=== PATIENT | male | born 1970 | race Caucasian/White ===

== ENCOUNTER 2017-01-16 10:13 | Emergency (ER) | payer OTHER ==
[2017-01-16] MEDS ORDERED: Aspirin 81 MG Tab.Chew PO ONE (10:30)
--- NOTE | 2017-01-16 11:02 | EDM.PDOC ---
ED HPI GENERAL MEDICAL PROBLEM - General Chief Complaint: Chest Pain Stated Complaint: [facility] Time Seen by Provider: 01/16/17 10:15 Source of Information: Reports: Patient, EMS Notes Reviewed History Limitations: Reports: No Limitations - History of Present Illness INITIAL COMMENTS - FREE TEXT/NARRATIVE: pt woke up this ama nd he shortly developed chest tightness and it hurt to take a deep breath in the middle of his chest Onset: Today, Sudden, Other (pt became very sob. ) Duration: Hour(s): Location: Reports: Chest, Other (He did get panicy when couldn,t catch his breath. ) Associated Symptoms: Reports: Shortness of Breath - Related Data Allergies Allergy/AdvReac Type Severity Reaction Status Date / Time No Known Allergies Allergy Verified 01/16/17 10:23 Past Medical History Cardiovascular History: Reports: Hypertension Social & Family History - Tobacco Use Smoking Status *Q: Unknown Ever Smoked ED ROS GENERAL - Review of Systems Review Of Systems: See Below Constitutional: Reports: No Symptoms HEENT: Reports: No Symptoms Respiratory: Reports: Shortness of Breath, Cough Cardiovascular: Reports: No Symptoms Endocrine: Reports: No Symptoms GI/Abdominal: Reports: No Symptoms : Reports: No Symptoms Musculoskeletal: Reports: No Symptoms Skin: Reports: No Symptoms ED EXAM, GENERAL - Physical Exam Exam: See Below Free Text/Narrative:: pt arrived after having an episode of chest pain and marked sob. Exam Limited By: No Limitations General Appearance: Alert, Anxious Ears: Normal TMs Nose: Normal Inspection Throat/Mouth: Normal Inspection Head: Atraumatic Neck: Normal Inspection Respiratory/Chest: Other (pt was not having distress after arival. ) Cardiovascular: Regular Rate, Rhythm GI/Abdominal: Soft, Non-Tender (Male) Exam: Deferred Rectal (Males) Exam: Deferred Extremities: Normal Inspection Neurological: Alert, Oriented, Normal Cognition Psychiatric: Anxious Course - Vital Signs Last Recorded V/S: Last Vital Signs Temp 35.7 C 01/16/17 15:20 Pulse 106 H 01/16/17 15:20 Resp 16 01/16/17 15:20 BP 165/115 H 01/16/17 15:20 Pulse Ox 97 01/16/17 15:20 - Orders/Labs/Meds Orders: Active Orders 24 hr Category Date Time Status EKG Documentation Completion [RC] ASDIRECTED Care 01/16/17 10:29 Active EKG 12 Lead [EK] Routine Ther 01/16/17 10:29 Ordered Labs: Laboratory Tests 01/16/17 01/16/17 01/16/17 Range/Units 10:16 10:16 10:26 WBC 9.9 (4.5-11.0) K/uL RBC 4.42 (4.30-5.90) M/uL Hgb 17.0 H (12.0-15.0) g/dL Hct 46.7 (40.0-54.0) % MCV 106 H (80-98) fL MCH 39 H (27-31) pg MCHC 36 (32-36) % Plt Count 198 (150-400) K/uL Neut % (Auto) 78 H (36-66) % Lymph % (Auto) 13 L (24-44) % Mccone % (Auto) 8 H (2-6) % Eos % (Auto) 1 L (2-4) % Baso % (Auto) 1 (0-1) % Puncture Site ABG pH (7.350-7.450) ABG pCO2 (35.0-42.0) mmHg ABG pO2 (75.0-100.0) mmHg ABG HCO3 (22.0-26.0) mmol/L ABG Total CO2 (23.0-27.0) mmol/L ABG O2 Saturation (95.0-98.0) % ABG O2 Content (15.0-23.0) %vol ABG Base Excess mm/L ABG Hemoglobin (13.5-18.0) g/dL ABG Oxyhemoglobin % ABG Carboxyhemoglobin (0.0-1.6) % ABG Methemoglobin % Tadeo Test O2 Delivery Device Sodium 142 (140-148) mmol/L Potassium 3.7 (3.6-5.2) mmol/L Chloride 108 (100-108) mmol/L Carbon Dioxide 24 (21-32) mmol/L Anion Gap 13.7 (5.0-14.0) mmol/L BUN 11 (7-18) mg/dL Creatinine 0.9 (0.8-1.3) mg/dL Est Cr Clr Drug Dosing 86.79 mL/min Estimated GFR (MDRD) > 60 (>60) Glucose 128 H (74-106) mg/dL Calcium 8.6 (8.5-10.1) mg/dL Total Bilirubin 1.3 H (0.2-1.0) mg/dL AST 28 (15-37) U/L ALT 36 (12-78) U/L Alkaline Phosphatase 68 (46-116) U/L Creatine Kinase 96 (39-308) U/L Troponin I 0.022 (0.000-0.056) ng/mL [id number] Pept (5-125) pg/mL Total Protein 7.2 (6.4-8.2) g/dL Albumin 3.6 (3.4-5.0) g/dL Globulin 3.6 H (2.3-3.5) g/dL Albumin/Globulin Ratio 1.0 L (1.2-2.2) Urine Color Urine Appearance Urine pH (4.5-8.0) Ur Specific [place] (1.008-1.030) Urine Protein (NEGATIVE) mg/dL Urine Glucose (UA) (NEGATIVE) mg/dL Urine Ketones (NEGATIVE) mg/dL Urine Occult Blood (NEGATIVE) Urine Nitrite (NEGAITVE) Urine Bilirubin (NEGATIVE) Urine Urobilinogen (NORMAL) mg/dL Ur Leukocyte Esterase (NEGATIVE) Urine RBC (0-5) Urine WBC (0-5) Ur Epithelial Cells Amorphous Sediment Urine Bacteria Urine Mucus Urine Other Urine Opiates Screen (NEGATIVE) Ur Oxycodone Screen (NEGATIVE) Urine Methadone Screen (NEGATIVE) Ur Propoxyphene Screen (NEGATIVE) Ur Barbiturates Screen (NEGATIVE) Ur Tricyclics Screen (NEGATIVE) Ur Phencyclidine Scrn (NEGATIVE) Ur Amphetamine Screen (NEGATIVE) U Methamphetamines Scrn (NEGATIVE) Urine MDMA Screen (NEGATIVE) U Benzodiazepines Scrn (NEGATIVE) U Cocaine Metab Screen (NEGATIVE) U Marijuana (THC) Screen (NEGATIVE) 01/16/17 01/16/17 01/16/17 Range/Units 10:31 11:10 11:10 WBC (4.5-11.0) K/uL RBC (4.30-5.90) M/uL Hgb (12.0-15.0) g/dL Hct (40.0-54.0) % MCV (80-98) fL MCH (27-31) pg MCHC (32-36) % Plt Count (150-400) K/uL Neut % (Auto) (36-66) % Lymph % (Auto) (24-44) % Mccone % (Auto) (2-6) % Eos % (Auto) (2-4) % Baso % (Auto) (0-1) % Puncture Site Lt radial ABG pH 7.469 H (7.350-7.450) ABG pCO2 27.6 L (35.0-42.0) mmHg ABG pO2 72.4 L (75.0-100.0) mmHg ABG HCO3 19.8 L (22.0-26.0) mmol/L ABG Total CO2 16.4 L (23.0-27.0) mmol/L ABG O2 Saturation 95.5 (95.0-98.0) % ABG O2 Content 22.1 (15.0-23.0) %vol ABG Base Excess -1.8 mm/L ABG Hemoglobin 17.0 (13.5-18.0) g/dL ABG Oxyhemoglobin 92.3 % ABG Carboxyhemoglobin 2.8 H (0.0-1.6) % ABG Methemoglobin 0.5 % Tadeo Test Passed O2 Delivery Device Room air Sodium (140-148) mmol/L Potassium (3.6-5.2) mmol/L Chloride (100-108) mmol/L Carbon Dioxide (21-32) mmol/L Anion Gap (5.0-14.0) mmol/L BUN (7-18) mg/dL Creatinine (0.8-1.3) mg/dL Est Cr Clr Drug Dosing mL/min Estimated GFR (MDRD) (>60) Glucose (74-106) mg/dL Calcium (8.5-10.1) mg/dL Total Bilirubin (0.2-1.0) mg/dL AST (15-37) U/L ALT (12-78) U/L Alkaline Phosphatase (46-116) U/L Creatine Kinase (39-308) U/L Troponin I (0.000-0.056) ng/mL [id number]-[id number] Pept (5-125) pg/mL Total Protein (6.4-8.2) g/dL Albumin (3.4-5.0) g/dL Globulin (2.3-3.5) g/dL Albumin/Globulin Ratio (1.2-2.2) Urine Color Yellow Urine Appearance Slightly cloudy Urine pH 5.0 (4.5-8.0) Ur Specific [place] 1.020 (1.008-1.030) Urine Protein Negative (NEGATIVE) mg/dL Urine Glucose (UA) Normal (NEGATIVE) mg/dL Urine Ketones Negative (NEGATIVE) mg/dL Urine Occult Blood Negative (NEGATIVE) Urine Nitrite Negative (NEGAITVE) Urine Bilirubin Small (NEGATIVE) Urine Urobilinogen Normal (NORMAL) mg/dL Ur Leukocyte Esterase Negative (NEGATIVE) Urine RBC 0-5 (0-5) Urine WBC Not seen (0-5) Ur Epithelial Cells Not seen Amorphous Sediment Few Urine Bacteria Not seen Urine Mucus Many Urine Other See note Urine Opiates Screen Negative (NEGATIVE) Ur Oxycodone Screen Negative (NEGATIVE) Urine Methadone Screen Negative (NEGATIVE) Ur Propoxyphene Screen Negative (NEGATIVE) Ur Barbiturates Screen Negative (NEGATIVE) Ur Tricyclics Screen Negative (NEGATIVE) Ur Phencyclidine Scrn Negative (NEGATIVE) Ur Amphetamine Screen Negative (NEGATIVE) U Methamphetamines Scrn Negative (NEGATIVE) Urine MDMA Screen Negative (NEGATIVE) U Benzodiazepines Scrn Negative (NEGATIVE) U Cocaine Metab Screen Negative (NEGATIVE) U Marijuana (THC) Screen Positive H (NEGATIVE) 01/16/17 Range/Units 13:08 WBC (4.5-11.0) K/uL RBC (4.30-5.90) M/uL Hgb (12.0-15.0) g/dL Hct (40.0-54.0) % MCV (80-98) fL MCH (27-31) pg MCHC (32-36) % Plt Count (150-400) K/uL Neut % (Auto) (36-66) % Lymph % (Auto) (24-44) % Mccone % (Auto) (2-6) % Eos % (Auto) (2-4) % Baso % (Auto) (0-1) % Puncture Site ABG pH (7.350-7.450) ABG pCO2 (35.0-42.0) mmHg ABG pO2 (75.0-100.0) mmHg ABG HCO3 (22.0-26.0) mmol/L ABG Total CO2 (23.0-27.0) mmol/L ABG O2 Saturation (95.0-98.0) % ABG O2 Content (15.0-23.0) %vol ABG Base Excess mm/L ABG Hemoglobin (13.5-18.0) g/dL ABG Oxyhemoglobin % ABG Carboxyhemoglobin (0.0-1.6) % ABG Methemoglobin % Tadeo Test O2 Delivery Device Sodium (140-148) mmol/L Potassium (3.6-5.2) mmol/L Chloride (100-108) mmol/L Carbon Dioxide (21-32) mmol/L Anion Gap (5.0-14.0) mmol/L BUN (7-18) mg/dL Creatinine (0.8-1.3) mg/dL Est Cr Clr Drug Dosing mL/min Estimated GFR (MDRD) (>60) Glucose (74-106) mg/dL Calcium (8.5-10.1) mg/dL Total Bilirubin (0.2-1.0) mg/dL AST (15-37) U/L ALT (12-78) U/L Alkaline Phosphatase (46-116) U/L Creatine Kinase (39-308) U/L Troponin I 0.018 (0.000-0.056) ng/mL Riz-[id number]-Dkqrbnljxli Pept 4302 H (5-125) pg/mL Total Protein (6.4-8.2) g/dL Albumin (3.4-5.0) g/dL Globulin (2.3-3.5) g/dL Albumin/Globulin Ratio (1.2-2.2) Urine Color Urine Appearance Urine pH (4.5-8.0) Ur Specific [place] (1.008-1.030) Urine Protein (NEGATIVE) mg/dL Urine Glucose (UA) (NEGATIVE) mg/dL Urine Ketones (NEGATIVE) mg/dL Urine Occult Blood (NEGATIVE) Urine Nitrite (NEGAITVE) Urine Bilirubin (NEGATIVE) Urine Urobilinogen (NORMAL) mg/dL Ur Leukocyte Esterase (NEGATIVE) Urine RBC (0-5) Urine WBC (0-5) Ur Epithelial Cells Amorphous Sediment Urine Bacteria Urine Mucus Urine Other Urine Opiates Screen (NEGATIVE) Ur Oxycodone Screen (NEGATIVE) Urine Methadone Screen (NEGATIVE) Ur Propoxyphene Screen (NEGATIVE) Ur Barbiturates Screen (NEGATIVE) Ur Tricyclics Screen (NEGATIVE) Ur Phencyclidine Scrn (NEGATIVE) Ur Amphetamine Screen (NEGATIVE) U Methamphetamines Scrn (NEGATIVE) Urine MDMA Screen (NEGATIVE) U Benzodiazepines Scrn (NEGATIVE) U Cocaine Metab Screen (NEGATIVE) U Marijuana (THC) Screen (NEGATIVE) Meds: Medications Discontinued Medications Generic Name Dose Route Start Last Admin Trade Name Sal PRN Reason Stop Dose Admin Aspirin 324 mg 01/16/17 10:30 01/16/17 10:35 Aspirin PO 01/16/17 10:31 324 mg ONETIME ONE Administration Sodium Chloride 100 mls @ 4 mls/sec 01/16/17 12:15 01/16/17 12:16 Normal Saline IV 01/16/17 12:30 4 mls/sec ASDIRECTED ALEX Administration Iopamidol 100 ml 01/16/17 12:15 01/16/17 12:16 Isovue-370 (76%) IV 01/16/17 12:30 100 ml . DIRECTED ALEX Administration - Re-Assessments/Exams Free Text/Narrative Re-Assessment/Exam: 01/16/17 13:43 pt did maintain lower o2 sats, He had a trop of .022. He had a left bundle branch block with no old Ekg to compare to. He Had some possible cardiomegoly on chest xray . He had a grade 2 systolic murmur to the left sternal border. He remained tachy. He had a cat scn of the chest which was neg excep bilateral small effusions. 01/16/17 14:50 Pt has a normal second trop. He has a bnp of over 4000. Cardiology in [place] was consulted and he felt he needed a cath and echo immediately. The pt refuses to consider being transfer there. He will go for an appt. Departure - Departure Time of Disposition: 14:52 Disposition: Home, Self-Care 01 Condition: Serious Clinical Impression: Systolic dysfunction, Angina at rest Instructions: Angina Pectoris Referrals: PCP,None [Primary Care Provider] - Forms: ED Department Discharge Care Plan Goals: pt refused to be admitted here, He refused to be transfered to [place] for echo and cardiac cath. He did consent to a follow up appt. in [place] with cardiology. His information was sent to Dr Wren and they will call from the clinic with a appt. Pt was informed of the risk he was taking. - My Orders Last 24 Hours: My Active Orders 01/16/17 10:29 EKG Documentation Completion [RC] ASDIRECTED EKG 12 Lead [EK] Routine - Assessment/Plan Last 24 Hours: My Active Orders 01/16/17 10:29 EKG Documentation Completion [RC] ASDIRECTED EKG 12 Lead [EK] Routine
--- NOTE | 2017-01-16 11:13 | CR ---
Chest 1V Frontal INDICATION: sob FINDINGS: Heart size is accentuated by portable AP technique. Chest otherwise negative.
[2017-01-16] MEDS ORDERED: Sodium Chloride 0.9% 100 ML IV SCH (12:15)
[2017-01-16] MEDS ORDERED: Iopamidol 755 Mg/ML 100 ML Bottle IV SCH (12:15)
--- NOTE | 2017-01-16 12:36 | CT ---
Ang Chest Total DLP 544 mGycm. INDICATION: sob and tightness in the chest. COMPARISON: None. FINDINGS: No acute pulmonary artery embolism. No focal infiltrate. Small bilateral pleural effusions . Soft tissues are negative. Exam otherwise unremarkable. IMPRESSION: No acute pulmonary artery embolism. Small bilateral pleural effusions.
[2017-01-16 15:24] VITALS: BP 165/115
== END 2017-01-16 15:26 | disposition home or self-care (01) ==
LOC: JP.ED 10:13
DX: I20.9 Angina pectoris, unspecified (principal); I51.89 Other ill-defined heart diseases; I10 Essential (primary) hypertension
CPT/HCPCS: 36415; 36600; 71010; 71275; 80053; 80305; 81001; 82550; 82803; 83880; 84484; 85025; 93005; 99285; A9270; J7030; Q9967